=== PATIENT | female | born 1950 | race Two or more races ===

== ENCOUNTER 2017-09-18 07:28 | Emergency (ER) | payer MEDICARE, OTHER ==
[~2017-09-18] VITALS: Ht 160 cm; Wt 72.6 kg
[2017-09-18 07:37] VITALS: BP 152/67
[2017-09-18] MEDS ORDERED: ACETAMINOPHEN ES 500 MG TABLET ONE (08:10)
[2017-09-18] MEDS ORDERED: ACETAMINOPHEN ES 500 MG TABLET PO ONE (08:30)
== END 2017-09-18 07:59 | disposition home or self-care (01) ==
LOC: ER 07:32
DX: H93.12 Tinnitus, left ear (principal)
CPT/HCPCS: 99282; A4606; Z7610